=== PATIENT | male | born 1995 | race Asian ===

== ENCOUNTER 2017-03-28 17:37 | Emergency (ER) | payer OTHER ==
[~2017-03-28] VITALS: Ht 172.7 cm; Wt 69.5 kg
[2017-03-28 17:41] VITALS: Ht 172.7 cm; Wt 69.5 kg
[2017-03-28 19:05] VITALS: BP 107/79
== END 2017-03-28 19:05 | disposition home or self-care (01) ==
LOC: ED 17:37
DX: B34.9 Viral infection, unspecified (principal)